=== PATIENT | female | born 1940 ===

== ENCOUNTER 2018-04-06 18:33 | Emergency (ER) | payer OTHER ==
[~2018-04-06] VITALS: Ht 157.5 cm; Wt 65.3 kg
[2018-04-06] MEDS ORDERED: CLONAZEPAM0.5 MG (18:53)
[2018-04-06] MEDS ORDERED: GENTAFAIR5 ML (18:55)
[2018-04-06] MEDS ORDERED: ASPIR 8181 MG (18:58)
[2018-04-06] MEDS ORDERED: TOPROL XL100 MG (18:58)
[2018-04-06] MEDS ORDERED: RANITIDINE HCL150 M1 (18:58)
== END 2018-04-06 22:58 | disposition home or self-care (01) ==
LOC: ER 18:33
DX: S00.03XA Contusion of scalp, initial encounter (principal); S19.89XA Other specified injuries of other specified part of neck, initial encounter; W22.8XXA Striking against or struck by other objects, initial encounter; Y93.89 Activity, other specified; Y92.89 Other specified places as the place of occurrence of the external cause; Y99.8 Other external cause status